=== PATIENT | female | born 2000 | race Caucasian/White ===

== ENCOUNTER → 2021-03-20 | Outpatient (CLI) | payer BC, MEDICAID, SELFPAY ==
[2021-03-20 14:44] VITALS: BMI 31.0
[2021-03-20 18:45] LABS: Amphetamine Urine VISTA NEGATIVE (<1000 ng/mL); Barbiturate Urine VISTA NEGATIVE (< 200 ng/mL); Benzodiazepine Urine VISTA NEGATIVE (< 200 ng/mL); Cocaine Urine VISTA NEGATIVE (< 300 ng/mL); Ecstacy Urine VISTA NEGATIVE (< 500 ng/mL); Methadone Urine VISTA NEGATIVE (< 300 ng/mL); PCP Urine VISTA NEGATIVE (< 25 ng/mL); THC Urine VISTA NEGATIVE (< 50 ng/mL); Vista UDS pH Range 6
[2021-03-23 03:06] LABS: Chlamydia By Nucleic Acid AMP Negative (Negative)
[2021-03-23 16:33] LABS: Gonococcus By Nucleic Acid AMP Negative (Negative)
[2021-03-23 18:49] LABS: HPV Reflexed? NOT INDICATED
== END | disposition home or self-care (01) ==
LOC: LABSPEC 17:12
PROVIDERS: Referring Provider Obstetrics & Gynecology; Visit Provider Obstetrics & Gynecology
DX: Z34.80 Encounter for supervision of other normal pregnancy, unspecified trimester (principal)
CPT/HCPCS: 80307; 87086; 87088; 87491; 87591; 88175; G0145

== ENCOUNTER → 2021-04-05 12:05 | Outpatient (CLI) | payer BC, MEDICAID, SELFPAY ==
[2021-03-20 14:44] VITALS: BMI 31.0
[2021-04-05 12:33] LABS: Absolute Neutrophil Count 8.4 X10^3/uL (2.0-7.7); Basophil# 0.07 X10^3/uL; Basophil% 0.5 % (0-1); Eosinophil# 0.14 X10^3/uL; Eosinophils% 1.1 % (0-5); Hematocrit 39.9 % (37-47); Lymphocyte % 27.1 % (19-41); Mean Corp Hgb Conc 32.6 g/dL (32-36); Mean Corpuscular Hgb 27.3 pg (27.0-32.0); Mean Corpuscular Volume 83.8 fL (81-99); Mean Platelet Vol. 10.6 fl (6.2-12.0); Monocyte# 1.06 X10^3/uL; NRBC Flagged by Analyzer 0 % (0-5); Neutrophil # 8.36 X10^3/uL (2.7-7.7); Neutrophil % 62.8 % (47-70); Platelet Count 297 K/mm3 (150-450); RBC Distribution Width CV 12.7 % (11.6-14.6); Red Blood Count 4.76 M/mm3 (4.2-5.4); White Blood Count 13.3 K/mm3 (4.4-11.0)
[2021-04-05 13:11] LABS: NATERA MAILED SPECIMEN
[2021-04-05 13:13] LABS: Glucose Challenge Gest 1H 50g 90 mg/dL (70-140)
[2021-04-05 13:48] LABS: HIV - WCH Non-Reactive (Nonreactive); Hepatitis B Surface Antigen Non-Reactive (Nonreactive); Hepatitis C Antibody Non-Reactive (Nonreactive); Rubella IgG Reactive (Nonreactive); Syphilis Antibodies Non-reactive
== END ==
PROVIDERS: Obstetrics & Gynecology; Referring Provider Obstetrics & Gynecology; Visit Provider Obstetrics & Gynecology
DX: O99.211 Obesity complicating pregnancy, first trimester (principal); Z3A.00 Weeks of gestation of pregnancy not specified
CPT/HCPCS: 36415; 82950; 85025; 86703; 86762; 86780; 86803; 86850; 86900; 86901; 87340

== ENCOUNTER → 2021-08-01 14:31 | Outpatient (CLI) | payer BC, MEDICAID, SELFPAY ==
[2021-08-01 15:56] LABS: Absolute Lymphocyte Count 2.35 X10^3/uL (0.83-4.51); Basophil# 0.05 X10^3/uL; Basophil% 0.4 % (0-1); Eosinophil# 0.12 X10^3/uL; Eosinophils% 0.9 % (0-5); Hematocrit 30.9 % (37-47); Lymphocyte # 2.35 X10^3/ul (0.83-4.51); Lymphocyte % 17.1 % (19-41); Mean Corp Hgb Conc 32.4 g/dL (32-36); Mean Corpuscular Hgb 26.7 pg (27.0-32.0); Mean Corpuscular Volume 82.6 fL (81-99); Mean Platelet Vol. 10.3 fl (6.2-12.0); Monocyte# 1.03 X10^3/uL; Monocyte% 7.5 % (0-10); NRBC Flagged by Analyzer 0 % (0-5); Neutrophil # 10.04 X10^3/uL (2.7-7.7); Neutrophil % 73.2 % (47-70); Platelet Count 311 K/mm3 (150-450); RBC Distribution Width CV 11.9 % (11.6-14.6); RBC Distribution Width SD 36.5 fl (35.1-43.9); Red Blood Count 3.74 M/mm3 (4.2-5.4); White Blood Count 13.7 K/mm3 (4.4-11.0)
[2021-08-01 16:16] LABS: Glucose Challenge Gest 1H 50g 106 mg/dL (70-140)
== END ==
PROVIDERS: Referring Provider Nurse Practitioner Women's Health; Visit Provider Nurse Practitioner Women's Health
DX: Z13.1 Encounter for screening for diabetes mellitus (principal)
CPT/HCPCS: 36415; 82950; 85025

== ENCOUNTER → 2021-09-26 16:04 | Outpatient (CLI) | payer BC, MEDICAID, SELFPAY ==
[2021-09-26 16:52] LABS: Absolute Lymphocyte Count 2.96 X10^3/uL (0.83-4.51); Absolute Neutrophil Count 8.6 X10^3/uL (2.0-7.7); Basophil# 0.04 X10^3/uL; Basophil% 0.3 % (0-1); Eosinophil# 0.06 X10^3/uL; Eosinophils% 0.5 % (0-5); Hematocrit 30.9 % (37-47); Hemoglobin 10.1 g/dL (12.0-15.0); Lymphocyte # 2.96 X10^3/ul (0.83-4.51); Lymphocyte % 22.6 % (19-41); Mean Corp Hgb Conc 32.7 g/dL (32-36); Mean Corpuscular Hgb 25.4 pg (27.0-32.0); Mean Corpuscular Volume 77.8 fL (81-99); Monocyte% 9.9 % (0-10); NRBC Flagged by Analyzer 0 % (0-5); Neutrophil # 8.61 X10^3/uL (2.7-7.7); Neutrophil % 65.7 % (47-70); Platelet Count 294 K/mm3 (150-450); RBC Distribution Width CV 13.8 % (11.6-14.6); Red Blood Count 3.97 M/mm3 (4.2-5.4); White Blood Count 13.1 K/mm3 (4.4-11.0)
== END ==
PROVIDERS: Referring Provider Obstetrics & Gynecology; Visit Provider Obstetrics & Gynecology
DX: O99.019 Anemia complicating pregnancy, unspecified trimester (principal); Z3A.00 Weeks of gestation of pregnancy not specified
CPT/HCPCS: 36415; 85025

== ENCOUNTER → 2021-10-03 | Outpatient (CLI) | payer BC, MEDICAID, SELFPAY | END | disposition home or self-care (01) | PROVIDERS: Visit Provider Obstetrics & Gynecology | DX: Z34.80 Encounter for supervision of other normal pregnancy, unspecified trimester (principal) | CPT/HCPCS: 87081 ==

== ENCOUNTER 2021-10-19 15:10 | Outpatient (CLI) | payer BC, MEDICAID, SELFPAY ==
[2021-10-19 15:40] VITALS: BMI 35.2
[2021-10-19 16:24] LABS: ROM Internal Control Test YES-OK TO RESULT pt. (Internal QC); ROM Patient Test Negative (Negative)
--- NOTE | 2021-10-19 17:05 | PN.OBGYN_ITS ---
Subjective Subjective Jody is a 21 y/o @ 39 weeks presenting with the complaint of leaking fluid. no vaginal bleeding, dec fm, or frequent contractions Objective Data Objective Data Vital Signs: Weight: 205 lb Body Mass Index (BMI) 35.2 Lab / Micro Data Labs: Laboratory Results - last 24 hr 10/19/21 15:45: Vag Amniotic Fld Detect Negative ROS Constitutional Constitutional: Reports systems reviewed and no addt'l complaints, except as documented Gastrointestinal Gastrointestinal: Denies bloating, constipation, cramping, diarrhea, nausea or vomiting Genitourinary Genitourinary: Reports other Details: Denies vaginal odor, vaginal bleeding, or vaginal discharge ; Denies difficulty urinating or flank pain Physical Exam HEENT normocephalic Resp normal respiratory effort and normal air movement no CVA tenderness Extremity normal to inspection General Extremity: edema bilateral (trace ) NST FHR Rate Baby A Baseline: 140 Variability:: Moderate Accelerations:: 15 x 15 Decelerations:: None NST Reactive:: Yes FHR Category:: Category I Assessment & Plan (1) False labor: PLAN: amnisure was negative. pt reassured. dc to home with labor precau tions Charges/Coding Multi Select Codes Visit Charges Office Visit/Consults: 32884 OV L3 Est Urinary/Genital Urinary/Genital CPT Codes: 09346-08 non-stress test Interp
== END 2021-10-19 17:10 | disposition home or self-care (01) ==
LOC: WPOUT 15:16 → WP 15:17
PROVIDERS: Visit Provider Obstetrics & Gynecology
DX: O47.1 False labor at or after 37 completed weeks of gestation (principal); Z3A.39 39 weeks gestation of pregnancy
CPT/HCPCS: 59025; 59050; 84112; 99218; G0378

== ENCOUNTER 2021-10-22 21:20 | Inpatient (IN) | payer BC, MEDICAID, SELFPAY ==
[2021-10-22] VITALS (13 sets, daily range): BP systolic 110–134; BP diastolic 56–72; PULSE 100–120; TEMP 37.6–37.7; O2SAT 85–99; BMI 35.2
[2021-10-22 21:38] LABS: Basophil% 0.2 % (0-1); Eosinophils% 0.3 % (0-5); Hematocrit 31.4 % (37-47); Lymphocyte # 2.88 X10^3/ul (0.83-4.51); Lymphocyte % 18.8 % (19-41); Mean Corp Hgb Conc 31.8 g/dL (32-36); Mean Corpuscular Hgb 24.5 pg (27.0-32.0); Mean Platelet Vol. 10.2 fl (6.2-12.0); Monocyte% 8.1 % (0-10); Neutrophil # 11.01 X10^3/uL (2.7-7.7); Neutrophil % 71.8 % (47-70); Platelet Count 277 K/mm3 (150-450); RBC Distribution Width CV 14.7 % (11.6-14.6); RBC Distribution Width SD 40.9 fl (35.1-43.9); Red Blood Count 4.08 M/mm3 (4.2-5.4); White Blood Count 15.3 K/mm3 (4.4-11.0)
[2021-10-22 21:39] LABS: Absolute Lymphocyte Count 2.88 X10^3/uL (0.83-4.51); Basophil# 0.03 X10^3/uL; Eosinophil# 0.05 X10^3/uL; Monocyte# 1.24 X10^3/uL; NRBC Flagged by Analyzer 0 % (0-5)
[2021-10-22] MEDS: Oxytocin 30 units/NS 500 ml 30 UNITS/500 ML IV.SOLN 334 UNITS IV (22:43)
--- NOTE | 2021-10-22 22:56 | HP.PCM.OB_ITS ---
HPI - General General Date of Admission: 10/22/21 HPI Narrative CANDY STRICKLAND, is a 21@ 39 weeks 4 days who presents to [facility] with painful contractions. She was noted to be 4 cm/90/0 station and intact at 9pm. By 10:15 she was 7-8 and membranes were ruptured spontaneously. Her was uncomplciated. Maternal Data Information DANNY Calculator Estimated Delivery Date Method Current WG Current Estimate 10/25/21 LMP (Certain) 39w 4d Other Estimates 10/27/21 Ultrasound #1 39w 2d PFSH PFS Medical History (Updated 10/20/21 @ 16:[address] Valerie Marquez MD) History of tetanus, diphtheria, and acellular pertussis booster vaccination (Tdap) No significant medical problems Home Medications multivitamin no.47-iron fum 27 mg-folate no.1 1 mg-dha 300 mg capsule 1 cap PO DAILY 03/15/21 [History Last Taken 10/19/21] ferrous sulfate 325 mg PO DAILY 10/19/21 [History Last Taken Unknown] Allergy/AdvReac Type Severity Reaction Status Date / Time No Known Allergies Allergy Verified 10/11/21 15:56 Surgical History H/O dilation and curettage History of tonsillectomy and adenoidectomy Social History adopted: No household members: family housing: house number of children: 1 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 Date Name GA/Weeks Outcome Route Bth Weight Infant Gen Labor Lgth Anesthesia Del Locatn Provider FOB 07/07/20 Matthew 40 live - full term 7lbs 12oz Male 12 hours epidural [facility] Nabor Delivery Date: 07/07/20 IoL d/t post dates Danuta Hernandez Visit Details Expected Delivery Route/Plan Labor Preferences- CB/BF classes: no labor support person: Nabor, mom - Dolly labor intervention preferences: open to standard interventions, interested in tub during labor pain management options preferred: desires natural but open to epidural, interested in nitrous oxide cut cord/dad catch: pt's mom wants to catch and deliver : yes PP control planned: discussed discussed possible routes of delivery and associated risks: discussed possible delivery modalities and possible indications for each including R/B/A of , VAVD, FAVD, and CS. questions answered. special requests: [] Plans covid status: nonimmune, counseled regarding risk of covid in vs vaccination and declined vaccination flu vaccine: [] tdap vaccine: given rhogam: na LARC form signed: yes movement and labor precautions reviewed. Problem list reviewed and updated with the most current plan of care details and appropriate orders placed. Relevant counseling for the gestational age provided. Continue routine care and follow up unless otherwise noted in visit notes/problem list details OB Flowsheet Initial Weight: 180 lb Date -?-?-?-?-?-?-?-?-?-?-?-?- EGA Weight BP Urine Prot -?-?-?-?-?-?-?-?-?-?-?-?- Glucose FHR FuHt Pres Dilation -?-?-?-?-?-?-?-?-?-?-?-?- Effaced St Visit Note 03/20/21 -?-?-?-?-?-?-?-?-?-?-?-?- 8w 5d 181 lb (+16 oz) 130/82 -?-?-?-?-?-?-?-?-?-?-?-?- 168 -?-?-?-?-?-?-?-?-?-?-?-?- GP - CRL 17mm co nsistent with LMP. 04/21/21 -?-?-?-?-?-?-?-?-?-?-?-?- 13w 2d 185 lb (+5 lb) 122/80 Negative -?-?-?-?-?-?-?-?-?-?-?-?- Negative 160 -?-?-?-?-?-?-?-?-?-?-?-?- GP - no cramping or bleeding. Planning gender reveal tomorrow. PRR. 05/16/21 -?-?-?-?-?-?-?-?-?-?-?-?- 16w 6d 186 lb 8 oz (+6 lb 8 oz) 118/62 Negative -?-?-?-?-?-?-?-?-?-?-?-?- Negative 168 -?-?-?-?-?-?-?-?-?-?-?-?- -NO Vb, LOF. A natomy US ordered 06/07/21 -?-?-?-?-?-?-?-?-?-?-?-?- 20w 0d 192 lb 8 oz (+12 lb 8 oz) 118/60 Negative -?-?-?-?-?-?-?-?-?-?-?-?- Negative 160 -?-?-?-?-?-?-?-?-?-?-?-?- GP - no ctx, LOF , VB, DFM. Anatomy this week. 07/05/21 -?-?-?-?-?-?-?-?-?-?-?-?- 24w 0d 200 lb 2 oz (+20 lb 2 oz) 126/62 Negative -?-?-?-?-?-?-?-?-?-?-?-?- Negative 152 -?-?-?-?-?-?-?-?-?--?-?-?- -No VB, LOF. Good FM. Has follow up anatomy US 07/13 to complete views. 08/01/21 -?-?-?-?-?-?-?-?-?-?-?-?- 27w 6d 204 lb 2 oz (+24 lb 2 oz) 126/60 Negative -?-?-?-?-?-?-?-?-?-?-?-?- Negative 148 -?-?-?-?-?-?-?-?-?-?-?-?- MH-No VB, LOF. G ood FM. brain MRI WNL. Tdap, larc and 28 wk labs today. 08/16/21 -?-?-?-?-?-?-?-?-?-?-?-?- 30w 0d 205 lb 2 oz (+25 lb 2 oz) 138/70 Negative -?-?-?-?-?-?-?-?-?-?-?-?- Negative 145 30 -?-?-?-?-?-?-?-?-?-?-?-?- GP - no LOF, VB, DFM, ctx. Denies complaints. 08/30/21 -?-?-?-?-?-?-?-?-?-?-?-?- 32w 0d 206 lb (+26 lb) 122/72 Negative -?-?-?-?-?-?-?-?-?-?-?-?- Negative 140 33 -?-?-?-?-?-?-?-?-?-?-?-?- SM- no vb lof go od fm no reuglar ctx 09/13/21 -?-?-?-?-?-?-?-?-?-?-?-?- 34w 0d 205 lb 4 oz (+25 lb 4 oz) 122/60 Negative -?-?-?-?-?-?-?-?-?-?-?-?- Negative 145 34 Cephalic -?-?-?-?-?-?-?-?-?-?-?-?- GP - no LOF, VB, DFM, ctx. Discussed labor preferences and routes of delivery. 09/26/21 -?-?-?-?-?-?-?-?-?-?-?-?- 35w 6d 207 lb (+27 lb) 130/80 Negative -?-?-?-?-?-?-?-?-?-?-?-?- Negative 135 36 Cephalic -?-?-?-?-?-?-?-?-?-?-?-?- SM- no lof, vag bleed or dec fm. 10/03/21 -?-?-?-?-?-?-?-?-?-?-?-?- 36w 6d 206 lb 6 oz (+26 lb 6 oz) 118/60 Negative -?-?-?-?-?-?-?-?-?-?-?-?- Negative 135 37 Cephalic -?-?-?-?-?-?-?-?-?-?-?-?- JV- no lof, vagi nal bleeding, or dec fm. no complaints. gbs collected today, 10/11/21 -?-?-?-?-?-?-?-?-?-?-?-?- 38w 0d 207 lb (+27 lb) 122/76 Negative -?-?-?-?-?-?-?-?-?-?-?-?- Negative 140 39 Cephalic 3 -?-?-?-?-?-?--?-?-?-?-?-?- 70 -4 JV- no lof , vaginal bleeding, or dec fm. labor precautions discussed 10/20/21 -?-?-?-?-?-?-?-?-?-?-?-?- 39w 2d 207 lb (+27 lb) 122/70 Trace -?-?-?-?-?-?-?-?-?-?-?-?- Negative 155 39 Cephalic 3 -?-?-?-?-?-?-?-?-?-?-?-?- 70 -2 Sm- no vb lof good fm no reuglar ctx 10/22/21 -?-?-?-?-?-?-?-?-?-?-?-?- 39w 4d 205 lb 0.478 oz (+25 lb 0.478 oz) 134/72 122/58 -?-?-?-?-?-?-?-?-?-?-?-?- -?-?-?-?-?-?-?-?-?-?-?-?- ROS Constitutional Constitutional: Denies change in weight, fatigue, fever(s), headache(s), poor appetite or weakness Eyes Eyes: Denies blurry vision, change in vision, seeing flashes or spots in vision ENT HEENT: Denies dizziness, headache(s), loss taste/smell or sore throat Cardiovascular Cardiovascular: Denies chest pain, dizziness, dyspnea, irregular heart rhythm, leg edema, palpitations, rapid heart rate or vomiting Respiratory/Chest Respiratory/Chest: Denies chest tightness, cough, dyspnea or breast pain Gastrointestinal Gastrointestinal: Denies abdominal pain, anorexia, constipation, cramping, diarrhea, hemorrhoids, vomiting or weight changes Genitourinary Genitourinary: Denies dysuria, flank pain, genital lesions, genital pain, urinary frequency or urinary urgency Musculoskeletal Musculoskeletal: Denies back pain, difficulty walking, joint pain, limited range of motion, muscle cramps or numbness Integumentary Integumentary: Denies lesions or unusual bruising Neurologic Neurologic: Denies abnormal movements, abnormal speech, dizziness, numbness, seizure-like activity or syncope Psychiatric Psychiatric: Denies anxiety, behavioral changes, change in appetite, change in libido, cognitive impairment, confusion, depression, difficulty concentrating, hallucinations or suicidal thoughts Endocrine Endocrinology: Denies excessive sweating, polydipsia or polyuria Hematologic/Lymphatic Hematologic/Lymphatic: Denies easy bleeding, easy bruising or lymphadenopathy Allergic/Immunologic Allergic/Immunologic: Denies itchy eyes, lip swelling, seasonal rhinorrhea, rhinitis, throat swelling, tongue swelling, eczemia, wheezing or asthma Vital Signs Vital Signs Vital Signs: 10/22/21 21:02 10/22/21 21:04 10/22/21 21:08 Temperature 99.7 F H Temperature Source Temporal Pulse Rate 111 H Blood Pressure 134/72 H BP Systolic 134 BP Diastolic 72 Pulse Ox 97 10/22/21 22:16 10/22/21 22:21 10/22/21 22:26 Temperature Temperature Source Pulse Rate 108 H 111 H 100 Blood Pressure BP Systolic BP Diastolic Pulse Ox 97 99 98 10/22/21 22:28 10/22/21 22:50 Temperature Temperature Source Pulse Rate 108 H 111 H Blood Pressure 122/58 H BP Systolic 122 BP Diastolic 58 Pulse Ox 85 Weight Weight: 205 lb 0.478 oz Body Mass Index (BMI) 35.2 Physical Exam Const alert, oriented x3, no apparent distress and healthy appearing General Appearance: cooperative; Negative for anxious HEENT normocephalic Face and Sinus: normal facial exam Eyes EOMs intact bilaterally and no scleral icterus General Eye: normal appearance of both eyes Neck full ROM and supple Lymph Lymphatic: no lymphadenopathy noted Chest Chest: abnormal inspection of the chest Resp normal respiratory effort Effort and Inspection: able to speak in complete sentences Cardio regular rate GI soft to palpation and non-tender Inspection: gravid Palpation: soft; Negative for tender external exam normal Amniotic Fluid: ROM+plus Back/Spine no CVA tenderness Extremity normal to inspection, full ROM and no clubbing, cyanosis or edema General Extremity: Negative for calf tenderness or edema Skin Lesions: no lesions Rashes: no rashes Psych mental status grossly normal Labs Labs Labs: Blood Type B POSITIVE Antibody Screen NEGATIVE Hct 31.4 % (37-47) L Hgb 10.0 g/dL (12.0-15.0) L Syphilis Total Ab Non-reactive Rubella IgG Antibody Reactive (Nonreactive) Hep Bs Antigen Non-Reactive (Nonreactive) Neisseria gonorrhoeae DNA (ZECHARIAH) Negative (Negative) HIV 1&2 Antibody Non-Reactive (Nonreactive) Glucose 1 Hr 50 gm 106 mg/dL (70-140) Assessment & Plan (1) Anemia affecting : COMMENT: iron added (2) Abnormal ultrasound: COMMENT: 06/12- unable to see CSP; 06/26- small CSP repeat US on 07/13, MRI 07/20, MRI nl (3) Short interval between pregnancies affecting , antepartum: COMMENT: last child born 07/2020 (4) Supervision of other normal : COMMENT: PRR DANNY:10/25/21 Girl! Babita PC: Matthew Spouse: Nabor (5) : QUALIFIERS: Weeks of gestation: 39 weeks Qualified Code(s): Z3A.39 - 39 weeks gestation of COMMENT: genetics (girl) declines carrier AFP screening. anatomy reviewed. GBS neg PLAN: GBS is negative Admit to l&D for active labor management Nitrous oxide is requested by patient for pain management anticipate soon. Charges/Coding Visit Charges Inpatient E&M: 36596 Init Hosp L3
--- NOTE | 2021-10-22 22:58 | EX.PCM.OBRPT ---
Maternal Data Information DANNY Calculator Estimated Delivery Date Method Current WG Current Estimate 10/25/21 LMP (Certain) 39w 4d Other Estimates 10/27/21 Ultrasound #1 39w 2d Vaginal Delivery Maternal Presentation Maternal Presentation: Active Labor Operative Information Date of Procedure: 10/22/21 Pre-Operative Diagnosis: 39 weeks 3 days in active labor Post-Operative Diagnosis: 39 weeks 3 days in active labor Surgery / Procedure Performed: Spontaneous Vaginal Delivery Type of Anesthesia: None (nitrous oxide ) Estimated Blood Loss: 100cc Time of Delivery: 22:50 Findings Description of Procedure: Patient began pushing and delivered the head in the VICTORINO presentation. The head was delivered atraumatically and a loose nuchal cord ?1 was identified and easily reduced over the 's head. The anterior and posterior shoulders delivered without complication followed by the rest of the and the infant was placed on the maternal abdomen. Delayed cord clamping was employed for approximately 60 seconds. Cord was clamped and cut and gentle traction was applied to the cord and the placenta delivered spontaneously immediately following it was noted to be intact with three-vessel cord. The perineum and vagina were inspected and noted to have a 1st degree laceration that was repaired with a 2-0 vicryl. EBL was 100 cc. Patient and tolerated delivery well. Presentation: VICTORINO Amniotic Fluid Description: Clear Placental Delivery Description: Spontaneous Placenta Disposition: [facility] Cord Vessel Description: 3 Vessels Cord Entanglement: Around neck x 1, loose Infant A Gender: Female (1 minute): 8 (5 minute): 9 Delayed Cord Clamping: Yes Post Vaginal Delivery Medications Given After Delivery: IV Pitocin Laceration: 1st degree Complication Complications: None Multi Select Codes Urinary/Genital Urinary/Genital CPT Codes: 48997 Vaginal Delivery [facility]
[2021-10-23] VITALS (18 sets, daily range): BP systolic 108–134; BP diastolic 56–74; PULSE 71–120; RESP 16–18; TEMP 36–37.4; O2SAT 95–98
[2021-10-24] VITALS (7 sets, daily range): BP systolic 110–124; BP diastolic 56–58; PULSE 93–99; RESP 16–18; TEMP 36.4–36.8; O2SAT 97–98
--- NOTE | 2021-10-24 07:55 | PCM.PN.OB ---
Subjective Subjective Patient doing well without complaints. Tolerating PO. Ambulating and voiding without difficulty. Feeding well. Denies chest pain, shortness of breath, calf pain/swelling, fevers, chills, lightheadedness. Objective Data Objective Data Vital Signs: Vital Signs Temp Pulse Resp BP Pulse Ox 97.6 F L 94 16 110/56 L 98 10/24/21 02:45 10/24/21 02:45 10/24/21 02:45 10/24/21 02:45 10/24/21 02:45 Oxygen Delivery Method Room Air Weight: 205 lb 0.478 oz Body Mass Index (BMI) 35.2 Intake & Output: Intake and Output for Last 24 Hours 10/22/21 10/23/21 10/24/21 23:59 23:59 23:59 Intake Total 500 / 500 Output Total 700 / 700 Balance -200 / -200 Lab / Micro Data Result Diagrams: 10/22/21 21:25 Micro: Microbiology 10/22/21 21:28 Nasal Secretion SARS-CoV-2 Antigen (Rapid) - Final Physical Exam Const alert and oriented x3 HEENT normocephalic Eyes PERRL Neck full ROM Resp normal respiratory effort GI soft to palpation GI Narrative: FF below U Assessment & Plan (1) Supervision of other normal : COMMENT: PRR DANNY:10/25/21 Girl! Babita PC: Matthew Spouse: Nabor PLAN: s/p PPD # 2 1. routine post delivery care 2. breast feeding- support given 3. rh positive 4. rubella immune 5. home today
--- NOTE | 2021-10-24 08:01 | PCM.DC ---
Discharge Instructions Diet Discharge Diet: No restrictions Activity Discharge Activity: Return to Normal Activity, May Not Drive (while taking narcotic pain medications.) and May Shower May resume sexual activity in: 4-6 weeks Dressing / Incision Call your doctor if your incision/area has: Continuous Slow Oozing, Sudden Increased Bleeding, Increased Pain/ Swelling, Increased Redness and Foul Smelling Discharge Follow Up Care Please Follow Up With: Marisa Boo, When: Call [phone] to make an appointment with your doctor in 6 weeks. If you had elevated blood pressure or 4th degree laceration, you will need to be seen in 2 weeks. Test Results: Test results from this visit will be discussed in further detail at your follow-up appointment, if applicable. Discharge Plan Admission Admit Date/Time: 10/22/21 21:20 Attending Provider: Marisa Boo Primary Care Provider: Care Physician,No Primary Instructions Patient Instructions: After a Vaginal Discharge Orders/Prescriptions Prescriptions: New ibuprofen 600 mg tablet 600 mg PO Q6H PRN (Reason: pain) 7 Days Qty: 30 RF: 0 docusate sodium [Colace] 100 mg capsule 100 mg PO DAILY PRN (Reason: constipation) 14 Days Qty: 28 RF: 0 Continued PNV-DHA 27 mg iron-1 mg -300 mg capsule 1 cap PO DAILY RF: 0 ferrous sulfate 325 mg (65 mg iron) Capsule, Extended Release 325 mg PO DAILY RF: 0 Referrals / Follow Up: Care Physician,No Primary [Primary Care Provider] - Disposition Disposition (needs filled in before D/C Order can be placed): Home, Self Care
--- NOTE | 2021-10-24 08:04 | PCM.DC.SUM ---
Providers Date of Admission: 10/22/21 Primary Care Physician: Rena Primary Care Phys Reason For Visit: LABOR AND DELIVERY Diagnosis Discharge Diagnosis (1) Supervision of other normal : Status: Acute Code(s): Z34.80 - Encounter for supervision of other normal , unspecified trimester Medications at Discharge Home Medications multivitamin no.47-iron fum 27 mg-folate no.1 1 mg-dha 300 mg capsule 1 cap PO DAILY 03/15/21 ferrous sulfate 325 mg PO DAILY 10/19/21 docusate sodium [Colace] 100 mg PO DAILY PRN 14 Days #28 cap 10/24/21 ibuprofen 600 mg PO Q6H PRN 7 Days #30 tab 10/24/21 Hospital Course Procedures - (vaginal delivery ) Summary of Care Provided Minutes Spent on Discharge: 10 Hospital Course: The patient was admitted to l&D for active labor on 10/22/2021. She delivered a viable without complications at approximately 10:30 pm. On ppd#1 she was recovering well without complaints. On ppd #2 she was ready to go home. Physical Exam Const alert, oriented x3 and no apparent distress General Appearance: cooperative and comfortable Resp normal respiratory effort Cardio regular rate GI normal to inspection, nondistended, normoactive bowel sounds GI Narrative: uterus is firm below umbilicus Palpation: soft Bimanual Exam - Adnexa, Other: Negative for cul-de-sac fullness Back/Spine no CVA tenderness and thoraco-lumbar ROM normal Extremity normal to inspection, no clubbing, cyanosis or edema, no calf tenderness and no pedal edema Psych mental status grossly normal, thought process normal, cooperative, affect normal, speech normal, activity/motor behavior normal, denies homicidal ideation and denies suicidal ideation Weight / BMI Weight Weight: 205 lb 0.478 oz Body Mass Index (BMI) 35.2 ABG / Lab / Microbiology Data Result Diagrams: 10/22/21 21:25 Microbiology: Microbiology 10/22/21 21:28 Nasal Secretion SARS-CoV-2 Antigen (Rapid) - Final D/C Instructions Discharge Diet: No restrictions May resume sexual activity in: 4-6 weeks Call your doctor if your incision/area has: Continuous Slow Oozing, Sudden Increased Bleeding, Increased Pain/ Swelling, Increased Redness and Foul Smelling Discharge Please Follow Up With: Marisa Boo DO When: Call [phone] to make an appointment with your doctor in 6 weeks. If you had elevated blood pressure or 4th degree laceration, you will need to be seen in 2 weeks. Meaningful Use Info Meaningful Use Diagnoses (Choose all that apply): None applicable Discharge Plan Admission Admit Date/Time: 10/22/21 21:20 Attending Provider: Marisa Boo Primary Care Provider: Care Physician,No Primary Instructions Patient Instructions: After a Vaginal Discharge Orders/Prescriptions Prescriptions: New ibuprofen 600 mg tablet 600 mg PO Q6H PRN (Reason: pain) 7 Days Qty: 30 RF: 0 docusate sodium [Colace] 100 mg capsule 100 mg PO DAILY PRN (Reason: constipation) 14 Days Qty: 28 RF: 0 Continued PNV-DHA 27 mg iron-1 mg -300 mg capsule 1 cap PO DAILY RF: 0 ferrous sulfate 325 mg (65 mg iron) Capsule, Extended Release 325 mg PO DAILY RF: 0 Referrals / Follow Up: Care Physician,No Primary [Primary Care Provider] - Disposition Disposition (needs filled in before D/C Order can be placed): Home, Self Care
== END 2021-10-24 10:14 | disposition home or self-care (01) | DRG 807 ==
LOC: WPOUT 21:22 → WP 21:22
PROVIDERS: Admitting Provider Obstetrics & Gynecology; Referring Provider Obstetrics & Gynecology; Visit Provider Obstetrics & Gynecology
DX: O99.02 Anemia complicating childbirth (principal); Z37.0 Single live birth; D64.9 Anemia, unspecified; O70.0 First degree perineal laceration during delivery; O69.81X0 Labor and delivery complicated by cord around neck, without compression, not applicable or unspecified; Z3A.39 39 weeks gestation of pregnancy
CPT/HCPCS: 59025; 59050; 85025; 86850; 86900; 86901; 87426; 99218; G0378

== ENCOUNTER → 2022-06-13 | Outpatient (CLI) | payer BC, MEDICAID, SELFPAY ==
[2022-06-13 16:04] LABS: hCG Titer Quant., Serum < 1 mIU/mL (1-3)
== END | disposition home or self-care (01) ==
LOC: PAVLAB 14:48
PROVIDERS: Referring Provider Obstetrics & Gynecology; Visit Provider Obstetrics & Gynecology
DX: N91.2 Amenorrhea, unspecified (principal)
CPT/HCPCS: 36415; 84702